=== PATIENT | male | born 1960 | race Caucasian/White ===

== ENCOUNTER 2023-10-31 09:41 | Emergency (ER) | payer BC, SELFPAY ==
[2023-10-31 09:43] VITALS: BP 141/92
[2023-10-31 09:55] VITALS: BMI 25.7
[2023-10-31 10:18] LABS: % Basophils 0.1 % (0-2); % Eosinophils 0.2 % (0-6); % Immature Granulocytes 0.3 % (0-0.5); % Lymphocytes 10.9 % (20.5-51.1); % Monocytes 7.8 % (1.7-9.3); % Neutrophils 80.7 % (42.2-75.2); Absolute Lymphocytes 1.1 10^3/uL (1.2-3.4); Absolute Monocytes 0.8 10^3/uL (0.1-0.6); Hematocrit 41.7 % (39.0-52.0); Hemoglobin 14.7 g/dL (13.0-18.0); Mean Corp Hgb Conc. 35.3 g/dL (33.0-37.0); Mean Corpuscular Hgb 29.5 pg (27.0-31.0); Mean Corpuscular Volume 83.6 fL (80.0-94.0); Mean Platelet Volume 9.3 fL (7.4-10.4); Nucleated Red Blood Cells % 0 % (-); Platelet Count 141 10^3/uL (130-400); Red Blood Cell Count 4.99 10^6/uL (4.70-6.10); Red Cell Dist. Width 13.1 % (11.5-14.5); White Blood Cell Count 9.9 10^3/uL (4.8-10.8)
[2023-10-31] MEDS: TORADOL 30 MG IV (10:26)
[2023-10-31] MEDS: ZOFRAN 4 MG IV (10:26)
[2023-10-31 10:27] LABS: ALT (SGPT) 16 U/L (0-50); AST (SGOT) 30 U/L (17-59); Albumin 4.4 g/dl (3.5-5.0); Alkaline Phosphatase 77 U/L (38-126); Blood Urea Nitrogen 25 mg/dl (9-20); Calcium 9.3 mg/dl (8.4-10.2); Carbon Dioxide 27 mmol/L (22-30); Chloride 101 mmol/L (98-107); Estimated Creatinine Clearance 41 ml/min; Glucose 109 mg/dl (70-99); Lipase 49 U/L (23-300); Potassium 3.9 mmol/L (3.5-5.1); Sodium 135 mmol/L (135-145); Total Bilirubin 1.1 mg/dl (0.2-1.3); eGFR 41.51
[2023-10-31] MEDS: NSS 1000 IV (10:27)
--- NOTE | 2023-10-31 10:36 | ED.GENMED ---
History of Present Illness
General
Chief Complaint: Abdominal Pain
Source: patient and spouse
Exam Limitations: none
Time Seen by Provider: 10/31/23 09:59
Nursing documentation reviewed up to this point in time: agreed with
History of Present Illness
History of Present Illness:
62-year-old male with past medical history of hypertension presenting to the emergency department today for concerns of left lower quadrant abdominal pain starting yesterday with associated nausea and vomiting yesterday as well. Denies any fevers
chest pain shortness of breath or changes in bowel movements.
Past History
Past History
ED Past Medical History: HTN
Social History
Tobacco: Non-smoker
Alcohol: None
Drug: None
Personal:
Living: with family
Employment: Employed
Review of Systems
Review of Systems
Allergies reviewed?: Yes
All Other Systems: ROS reviewed and negative except as documented in HPI and ROS
Phy Exam
Physical Exam
Physical Exam:
GENERAL: Alert , in no apparent distress
EYE: pupils equal and reactive
NECK: Supple, no significant adenopathy.
ENT: o/p clr, mmm.
CARDIAC: Regular rate and rhythm .
LUNGS: Clear breath sounds bilaterally, no acute respiratory distres
Abdomen, left lower quadrant abdominal pain to palpation otherwise soft benign abdomen.
NEUROLOGICAL: Alert and oriented, no focal neuro deficits
SKIN: Warm and dry, skin intact.
MUSCULOSKELETAL: No edema, well perfused.
PSYCH: Normal and appropriate interaction.
Course
Orders/Labs/Results
Orders:
Orders
10/31/23 09:46
IV Insert/Care/Rem.- Treatment PRN
10/31/23 10:01
Complete Blood Count/With Diff Urgent
Comprehensive Metabolic Panel Urgent
Lipase Urgent
10/31/23 10:18
CT Abd/Pel (IV only)-DH only Urgent
Comment:
Reason For Exam: llq pain
0.9% Sodium Chloride 1000 ml [Nss] 1,000 ml IV BOLUS
Ketorolac [Toradol] 30 mg IV NOW STA
Ondansetron Injectable [Zofran] 4 mg IV NOW STA
10/31/23 11:41
Urinalysis Reflex To Culture Urgent
Date Specimen was Collected: 10/31/23
Time Specimen was Collected: 11:36
Urine Microscopic Reflex Cult Urgent
10/31/23 14:27
BMP [Basic Metabolic Panel] Urgent
Abnormal Lab Results
10/31/23 10/31/23 10/31/23
10:01 11:41 14:27
Absolute Neuts (auto) 8.0 H 10^3/uL
(1.4-6.5)
Absolute Lymphs (auto) 1.1 L 10^3/uL
(1.2-3.4)
Absolute Monos (auto) 0.8 H 10^3/uL
(0.1-0.6)
Neutrophils % 80.7 H %
(42.2-75.2)
Lymphocytes % 10.9 L %
(20.5-51.1)
Sodium 133 L mmol/L
(135-145)
BUN 25 H mg/dl 25 H mg/dl
(9-20) (9-20)
Creatinine 1.8 H mg/dL 1.7 H mg/dL
(0.7-1.3) (0.7-1.3)
Glucose 109 H mg/dl
(70-99)
Calcium 8.3 L mg/dl
(8.4-10.2)
Ur Occult Blood Reflex Trace A
(Negative)
10/31/23 10:01
10/31/23 14:27
Vital Signs
Initial and Last Documented VS:
Initial Vital Signs
Temp Pulse Resp BP Pulse Ox
99.6 F 75 18 141/92 97
10/31/23 09:43 10/31/23 09:43 10/31/23 09:43 10/31/23 09:43 10/31/23 09:43
Last Documented Vital Signs
Temp Pulse Resp BP Pulse Ox
99.6 F 75 18 126/85 97
10/31/23 09:43 10/31/23 09:43 10/31/23 09:43 10/31/23 12:00 10/31/23 12:01
MDM/Problems Addressed
MDM/Problems Addressed:
63-year-old male presenting to the emergency department today with concerns of left lower quadrant pain starting yesterday with associated nausea and vomiting. Upon arrival here patient has a low-grade temp otherwise vital signs are normal.
Patient does have reproducible tenderness to the left lower quadrant. Plan for CT scan for further assessment. Additional labs were obtained showing elevated creatinine level 1.8. He denies any history of kidney disease was given a liter of
fluid. Patient's old labs were able to be seen via his patient portal on his phone his last creatinine was 1.08. Creatinine level was repeated after some fluids with creatinine 1.7. Patient has been vomiting potentially prerenal. CT scan did
show a distal stone on the left case was discussed with urology that recommend trial of passage and close outpatient follow-up. He was written for Flomax and advised for close outpatient follow-up. He was given strict return precautions.
Additionally patient's mass of the right kidney was explained to the patient and he will follow-up closely with urology for this as well.
*Critical Care Note
Total Time (30-74mins, 75-104mins- exclusive of procedures): Not Applicable
ED Attending Note
-
Portions of this chart may have been created with voice recognition software.� Occasional wrong word or��sound alike� substitutions may have occurred due to the inherent limitations of voice recognition software.
Discharge Plan
Departure
Patient Disposition: Home (Routine Discharge)
Date of Disposition: 10/31/23
Time of Disposition: 15:38
Patient with high blood pressure during this ER visit?: No
Condition: Good
Covid-19: Not Applicable
Discharge Problem:
Hydronephrosis with ureteral calculus, Kidney mass, Elevated serum creatinine
Instructions: Kidney Stones (DC)
Prescriptions:
New
ketorolac 10 mg tablet
10 mg PO Q8H PRN (Reason: Pain) 2 Days Qty: 7 0RF
ondansetron 4 mg tablet,disintegrating
4 mg PO Q8H PRN (Reason: nausea and vomiting) Qty: 7 0RF
tamsulosin [Flomax] 0.4 mg capsule
0.4 mg PO HS Qty: 10 0RF
No Action
valsartan-hydrochlorothiazide 1 EACH tablet
1 ea PO DAILY
Patient Comments:
80mg-12.5mg
diphenhydramine-acetaminophen 1 EACH tablet
1 ea PO PRN PRN (Reason: sleep)
Simvastatin
1 tab PO DAILY
Referrals:
Rafaela Cantu DO [Family Provider] -
Yobany Lawson MD [Active] - Follow up in 5-7 days
Activity Restrictions/Additional Instructions:
You came to the emergency department today with concerns of left-sided discomfort. You are found to have a distal kidney stone that is 5 x 3 mm in size. Please take the prescribed medications to help with passage and stay very hydrated.
Additionally you are found to have a 4 cm mass to the right kidney that will need close follow-up with urology. Return to the emergency department any worsening, new or concerning symptoms.
Interventions
Interventions:
*Risk Screen - Suicide Last Done: 10/31/23 09:43
*General Assessment Last Done: 10/31/23 09:43
*Neglect/Abuse Screening Last Done: 10/31/23 09:43
ED- Fall Risk Assessment Last Done: 10/31/23 12:18
*ED COVID-19 Vaccine History Last Done: 10/31/23 12:18
NE-Cjmidl-Zhgxxdxwkg Assessment Last Done: 10/31/23 10:03
Discharge Date and Time
Print Language: SETSWANA
[2023-10-31 11:41] VITALS: BP 124/80
[2023-10-31 12:00] VITALS: BP 126/85
[2023-10-31 12:10] LABS: Urine Albumin Trace (Neg - Trace); Urine Bilirubin Negative (Negative); Urine Character Clear (Clear); Urine Color Yellow; Urine Glucose Negative (Negative); Urine Ketone Negative (Negative); Urine Leukocyte Negative (Negative); Urine Nitrite Negative (Negative); Urine Occult Blood Trace (Negative); Urine Urobilinogen Negative (Neg - 1+)
[2023-10-31 13:21] LABS: Urine Red Blood Cell 0-2 /HPF (0-2); Urine White Cell 0-2 /HPF (0-5)
[2023-10-31 15:11] LABS: Blood Urea Nitrogen 25 mg/dl (9-20); Calcium 8.3 mg/dl (8.4-10.2); Carbon Dioxide 24 mmol/L (22-30); Chloride 103 mmol/L (98-107); Estimated Creatinine Clearance 44 ml/min; Glucose 98 mg/dl (70-99); Potassium 4.5 mmol/L (3.5-5.1); Sodium 133 mmol/L (135-145); eGFR 44.46
[2023-10-31 15:44] VITALS: BP 124/80
== END 2023-10-31 15:48 | disposition home or self-care (01) ==
LOC: EMR 09:41
PROVIDERS: Physician Assistant; EMERGENCY PHYSICIAN Emergency Medicine; FAMILY PHYSICIAN Family Medicine
DX: R10.32 Left lower quadrant pain (principal); R11.2 Nausea with vomiting, unspecified; N13.2 Hydronephrosis with renal and ureteral calculous obstruction; N28.89 Other specified disorders of kidney and ureter; R79.89 Other specified abnormal findings of blood chemistry; I10 Essential (primary) hypertension
CPT/HCPCS: 99285; 96375; 96361 ×2; 96374; 74177; 80048; 80053; 81003; 81015; 83690; 85025; Q9967

== ENCOUNTER → 2023-11-15 11:21 | Outpatient (REF) | payer BC, SELFPAY | LOC: RAD 11:21 | PROVIDERS: ATTENDING PHYSICIAN Specialist; FAMILY PHYSICIAN Family Medicine | DX: N28.89 Other specified disorders of kidney and ureter (principal) | CPT/HCPCS: 74170; Q9967 ==

== ENCOUNTER → 2024-02-08 10:12 | Outpatient (REF) | payer MEDICARE, SELFPAY ==
[2024-02-08 11:42] LABS: Hematocrit 39.2 % (39.0-52.0); Hemoglobin 13.1 g/dL (13.0-18.0); Mean Corp Hgb Conc. 33.4 g/dL (33.0-37.0); Mean Corpuscular Hgb 28.7 pg (27.0-31.0); Mean Platelet Volume 10.7 fL (7.4-10.4); Platelet Count 149 10^3/uL (130-400); Red Blood Cell Count 4.56 10^6/uL (4.70-6.10); Red Cell Dist. Width 13.4 % (11.5-14.5); White Blood Cell Count 4.6 10^3/uL (4.8-10.8)
[2024-02-08 12:53] LABS: Blood Urea Nitrogen 21 mg/dl (9-20); Calcium 9.1 mg/dl (8.4-10.2); Carbon Dioxide 27 mmol/L (22-30); Chloride 106 mmol/L (98-107); Glucose 84 mg/dl (70-99); Potassium 4.3 mmol/L (3.5-5.1); Sodium 143 mmol/L (135-145); eGFR > 60.00
== END ==
LOC: SDSPAT 10:12
PROVIDERS: ATTENDING PHYSICIAN Urology; FAMILY PHYSICIAN Family Medicine; OTHER PHYSICIAN Internal Medicine Cardiovascular Disease
DX: N28.89 Other specified disorders of kidney and ureter (principal); Z01.818 Encounter for other preprocedural examination
CPT/HCPCS: 36415; 80048; 85027; 86850; 86900; 86901; 93005

== ENCOUNTER 2024-02-14 05:56 | Inpatient (IN) | payer MEDICARE, BC, SELFPAY ==
[2024-02-08 10:57] VITALS: BMI 24.3
[2024-02-14] VITALS (22 sets, daily range): BP systolic 106–142; BP diastolic 64–81; BMI 24.3
--- NOTE | 2024-02-14 11:58 | W.IMMPOSTOP ---
Surgical Immed Post Op Note
-
Primary Surgeon: Dom
Assisting Surgeon: Renny
Pre-op Diagnosis: R renal mass
Post-op Diagnosis: same
Procedure Performed: robotic R radical nephrectomy
Anesthesia Type: gen
Specimen / Cultures: R kidney
Estimated Blood Loss: 30cc
Complications: none
Operative Findings: Unable to complete partial nephrectomy due to size and depth of large renal mass
Decision was made to complete total nephrectomy
[2024-02-14 12:43] LABS: Hematocrit 35.2 % (39.0-52.0); Hemoglobin 12.1 g/dL (13.0-18.0); Mean Corp Hgb Conc. 34.4 g/dL (33.0-37.0); Mean Corpuscular Hgb 28.9 pg (27.0-31.0); Platelet Count 135 10^3/uL (130-400); Red Blood Cell Count 4.19 10^6/uL (4.70-6.10); Red Cell Dist. Width 13.2 % (11.5-14.5); White Blood Cell Count 10.1 10^3/uL (4.8-10.8)
[2024-02-14 12:49] LABS: Blood Urea Nitrogen 23 mg/dl (9-20); Calcium 8.3 mg/dl (8.4-10.2); Carbon Dioxide 23 mmol/L (22-30); Chloride 106 mmol/L (98-107); Estimated Creatinine Clearance 61 ml/min; Glucose 165 mg/dl (70-99); Potassium 3.9 mmol/L (3.5-5.1); Sodium 138 mmol/L (135-145); eGFR > 60.00
[2024-02-14] MEDS: NSS 1000 IV (16:28)
--- NOTE | 2024-02-14 17:37 | PTCARENOTE ---
Received patient from PACU via bed around 1625 in stable condition. Patient oriented to room. Pain controlled. 5 laps site to right abdomen as well as right lateral transverse pelvic incision PAPER HANGER closed with surgical glue. Urinary catheter draining
clear yellow urine. Call mena in reach.
[2024-02-14] MEDS: SENOKOT PO (20:43)
[2024-02-14] MEDS: TYLENOL 650 MG PO (22:20)
[2024-02-14] MEDS: REMERON 7.5 MG PO (22:20)
[2024-02-15 03:08] VITALS: BP 112/64
[2024-02-15] MEDS: PERCOCET 5/325 1 TABLET PO (03:09)
[2024-02-15] MEDS: NSS 1000 IV (03:10)
--- NOTE | 2024-02-15 06:23 | PTCARENOTE ---
Indwelling catheter removed per order @0605 without incident. Pt given time and amount.
[2024-02-15 06:34] LABS: Hematocrit 33.5 % (39.0-52.0); Hemoglobin 11.8 g/dL (13.0-18.0); Mean Corp Hgb Conc. 35.2 g/dL (33.0-37.0); Mean Corpuscular Hgb 30.3 pg (27.0-31.0); Mean Corpuscular Volume 86.1 fL (80.0-94.0); Mean Platelet Volume 10.9 fL (7.4-10.4); Platelet Count 141 10^3/uL (130-400); Red Blood Cell Count 3.89 10^6/uL (4.70-6.10); Red Cell Dist. Width 13.3 % (11.5-14.5); White Blood Cell Count 12.1 10^3/uL (4.8-10.8)
[2024-02-15 06:57] LABS: Blood Urea Nitrogen 25 mg/dl (9-20); Calcium 8.6 mg/dl (8.4-10.2); Carbon Dioxide 21 mmol/L (22-30); Chloride 107 mmol/L (98-107); Estimated Creatinine Clearance 46 ml/min; Glucose 116 mg/dl (70-99); Potassium 4.9 mmol/L (3.5-5.1); Sodium 140 mmol/L (135-145); eGFR 47.52
[2024-02-15 07:31] VITALS: BP 122/63
[2024-02-15] MEDS: SENOKOT 17.2 MG PO (08:13)
[2024-02-15] MEDS: DIOVAN 80 MG PO (08:13)
[2024-02-15] MEDS: ALDACTONE 12.5 MG PO (08:14)
[2024-02-15] MEDS: CRESTOR 5 MG PO (08:14)
--- NOTE | 2024-02-15 08:56 | W.DS.TRANS ---
DC Summary - Events Assistant
-
Discharge Instructions:
Sleep Apnea Risk Intermediate
Discharge Diagnosis/Procedures Right kidney mass
Robotic right nephrectomy
Diet No restrictions
Activity No strenuous activity
Additional Activity Avoid lifting, straining, and strenuous exercise
for 4 weeks. Sorry, no pickleball during this
time
Driving Restrictions As prior to admission
Bathing Restrictions OK to Shower
Wound Care gently rinse incisions in the shower, don't
scrub or pick off glue
Instructions:
Stand-Alone Forms:
Changes to Home Medications: No
Discharge Medications:
DC Medications w/original date entered in [employer]
mirtazapine 15 mg tablet 7.5 mg PO HS PRN SLEEP 02/11/24
rosuvastatin 5 mg tablet 5 mg PO DAILY 02/11/24
spironolactone 25 mg tablet 12.5 mg PO DAILY 02/11/24
valsartan 80 mg tablet 80 mg PO DAILY 02/11/24
oxycodone-acetaminophen 5 mg-325 mg tablet 1 tab PO Q4HPRN PRN moderate pain #10 tabs 02/14/24
Home Medication Changes
Pending Results: No
[2024-02-15 11:27] VITALS: BP 112/70
--- NOTE | 2024-02-15 11:39 | CM ---
Met with pt at bedside
Pt lives with his in a 2 story home; 3 steps to enter, 12 steps to 2nd fl
Retired, independent , driving
DME - none
SNF/HH - no hx
Has ride at discharge
PCP - Rafaela Cantu
Pharm - [facility]
Plan - anticipate home no needs when medically ready
--- NOTE | 2024-02-26 13:37 | W.PN.UPDATE ---
Update Note
Progress Note Update
This patient was intended to be admitted as inpatient due to radical nephrectomy procedure performed
--- NOTE | 2024-02-26 13:37 | W.DS.TRANS ---
Addendum entered and electronically signed by Ananda Fernandes MD 02/26/24 13:40:
Ignore this summary - please refer to the note from Dr. Lawson
Original Note:
DC Summary - Food Safety Director
-
Discharge Instructions:
Sleep Apnea Risk Intermediate
Discharge Diagnosis/Procedures Right kidney mass
Robotic right nephrectomy
Diet No restrictions
Activity No strenuous activity
Additional Activity Avoid lifting, straining, and strenuous exercise
for 4 weeks. Sorry, no pickleball during this
time
Driving Restrictions As prior to admission
Bathing Restrictions OK to Shower
Wound Care gently rinse incisions in the shower, don't
scrub or pick off glue
Instructions:
Stand-Alone Forms:
Changes to Home Medications: No
Discharge Medications:
DC Medications w/original date entered in [employer]
mirtazapine 15 mg tablet 7.5 mg PO HS PRN SLEEP 02/11/24
rosuvastatin 5 mg tablet 5 mg PO DAILY 02/11/24
spironolactone 25 mg tablet 12.5 mg PO DAILY 02/11/24
valsartan 80 mg tablet 80 mg PO DAILY 02/11/24
oxycodone-acetaminophen 5 mg-325 mg tablet 1 tab PO Q4HPRN PRN moderate pain #10 tabs 02/14/24
Home Medication Changes
Pending Results: Yes (pathology)
== END 2024-02-15 15:00 | disposition home or self-care (01) | DRG 658 ==
LOC: PACUI 05:56
PROVIDERS: ADMITTING PHYSICIAN Urology
PROC: 0TT04ZZ Resection of Right Kidney, Percutaneous Endoscopic Approach (ICD-10-PCS; 2024-02-14)
PROC: 8E0W4CZ Robotic Assisted Procedure of Trunk Region, Percutaneous Endoscopic Approach (ICD-10-PCS; 2024-02-14)
DX: D30.01 Benign neoplasm of right kidney (principal)
CPT/HCPCS: 50545; S2900; 88304; 88307; 80048; 85027; 86900; 86901; 88341; 88342

== ENCOUNTER → 2024-03-01 12:05 | Day surgery (SDC) | payer MEDICARE, SELFPAY ==
[2024-03-01] VITALS (15 sets, daily range): BP systolic 130–150; BP diastolic 70–89; BMI 25.1
--- NOTE | 2024-03-01 06:17 | ED.GENMED ---
History of Present Illness
General
Chief Complaint: Abdominal Pain
Source: patient
Exam Limitations: none
Time Seen by Provider: 03/01/24 06:10
History of Present Illness
History of Present Illness:
See MDM
Past History
Past History
ED Past Medical History: HTN
ED Past Surgical History: Urological (R nephrectomy)
Social History
Tobacco: Non-smoker
Alcohol: None
Drug: None
Personal:
Living: with family
Employment: Employed
Phy Exam
Physical Exam
Physical Exam:
See MDM
Course
Orders/Labs/Results
Orders:
Orders
03/01/24 06:15
0.9% Sodium Chloride 1000 ml [Nss] 1,000 ml IV BOLUS
Iohexol [Omnipaque] See Protocol PO NOW STA
Morphine Sulfate 4 mg IV NOW STA
Ondansetron Injectable [Zofran] 4 mg IV NOW STA
03/01/24 06:16
CT Abd/pel (oral only)-DH Only Urgent
Comment: R nephrectomy 2 wks ago
Reason For Exam: general abd pain
03/01/24 06:19
Complete Blood Count/With Diff Urgent
Comprehensive Metabolic Panel Urgent
Lipase Urgent
03/01/24 06:47
Urinalysis Reflex To Culture Urgent
Date Specimen was Collected: 03/01/24
Time Specimen was Collected: 06:46
Urine Microscopic Reflex Cult Urgent
03/01/24 08:00
HYDROmorphone [Dilaudid] 0.5 mg IV NOW STA
Ondansetron Injectable [Zofran] 4 mg IV NOW STA
Abnormal Lab Results
03/01/24 03/01/24
06:19 06:47
RBC 4.33 L 10^6/uL
(4.70-6.10)
Hgb 12.6 L g/dL
(13.0-18.0)
Hct 35.8 L %
(39.0-52.0)
Absolute Neuts (auto) 6.7 H 10^3/uL
(1.4-6.5)
Neutrophils % 77.6 H %
(42.2-75.2)
Lymphocytes % 16.1 L %
(20.5-51.1)
Carbon Dioxide 19 L mmol/L
(22-30)
BUN 45 H mg/dl
(9-20)
Creatinine 2.2 H mg/dL
(0.7-1.3)
Glucose 126 H mg/dl
(70-99)
Ur Occult Blood Reflex 4+ A
(Negative)
Leukocyte Esterase Rfl Trace A
(Negative)
Urine RBC 7-10 A /HPF
(0-2)
Urine Albumin (Reflex) 1+ A
(Neg - Trace)
03/01/24 06:19
03/01/24 06:19
Vital Signs
Initial and Last Documented VS:
Initial Vital Signs
Temp Pulse Resp BP Pulse Ox
98.0 F 68 20 150/86 99
03/01/24 05:50 03/01/24 05:50 03/01/24 05:50 03/01/24 05:50 03/01/24 05:50
Last Documented Vital Signs
Temp Pulse Resp BP Pulse Ox
98.0 F 71 20 142/89 97
03/01/24 05:50 03/01/24 08:00 03/01/24 05:50 03/01/24 07:00 03/01/24 08:00
MDM/Problems Addressed
Differential Diagnosis Includes:
HPI and MDM Narrative:
64-year-old male presenting with generalized abdominal pain. This has been going on since this morning. He complains of dry heaves. He did have a normal bowel movement recently. Patient recently had right nephrectomy 2 weeks ago. Patient had
large kidney mass that required complete removal of the kidney. Patient states he has been feeling fine up until this morning.
Given his abdominal discomfort and his recent surgery, will obtain CT
Physical exam
General: Well appearing and non-toxic
HEENT: protecting airway. Mildly dry mucous member
Neck: appears supple
CV: No evidence of cyanosis
Resp: No accessory muscle use
Abd: Non-distended. Mild general tenderness throughout. No rebound
Extremities: No deformities. No edema
Neuro: alert
Psych: Normal affect
Skin: Intact
Problems Addressed including Acute and Chronic Conditions affecting care:
1. Abdominal pain
Acuity: acute
Prognosis: stable
Details: Given the recent nephrectomy, will obtain CT looking for any evidence of postsurgical complication.
Updates
8:50 AM radiology called indicating obstructive kidney stone with hydronephrosis. Given that he only has 1 kidney with a rising creatinine, urology made aware who will bring to the OR today.
Differential Diagnosis (but not limited to): Gastroenteritis, colitis, pancreatitis, diverticulitis
Testing considered: CT with IV contrast but will avoid given recent nephrectomy
Drug therapy (if applicable): OTC meds, please see d/c instruction regarding Rx drugs
Amount and/or Complexity of Data Reviewed
Clinical info obtained from: Patient
External data reviewed: Recent nephrectomy 2 weeks ago
Labs I independently reviewed (but not limited to): Mild Cr elevation
Radiology: The CT scan was personally and independently reviewed. In addition, official CT report reviewed.
Pulse Ox: not hypoxic
EKG independently reviewed: N/A
Senior Environmental Scientist: Sinus rhythm
Critical Care: N/A
Risk of Complication:
Social Determinants of health: Good social support
Discussed with other providers: Radiology, urology
Escalation of Care includes Admit/Obs: Given the obstructing stone with only 1 kidney, urology will bring to the OR
Occasional wrong word or 'sound a like' substitutions may have occurred due to the inherent limitations of voice recognition software. Read the chart carefully and recognize, using context, where substitutions have occurred.
*Critical Care Note
Total Time (30-74mins, 75-104mins- exclusive of procedures): Not Applicable
ED Attending Note
-
Portions of this chart may have been created with voice recognition software.� Occasional wrong word or��sound alike� substitutions may have occurred due to the inherent limitations of voice recognition software.
Discharge Plan
Departure
Patient Disposition: OR
Date of Disposition: 03/01/24
Time of Disposition: 08:54
Admit to: OR
Presentation/result/management discussed w/ accepting MD/DO: Urology
Discharge Problem:
Kidney stone on left side
Prescriptions:
No Action
valsartan 80 mg Tablet
80 mg PO DAILY
spironolactone 25 mg Tablet
12.5 mg PO DAILY
mirtazapine 15 mg Tablet
7.5 mg PO HS PRN (Reason: SLEEP)
rosuvastatin 5 mg Tablet
5 mg PO DAILY
oxycodone-acetaminophen 5-325 mg Tablet
1 tab PO Q4HPRN PRN (Reason: moderate pain) Qty: 10 0RF
Referrals:
Rafaela Cantu DO [Family Provider] -
Interventions
Interventions:
*Risk Screen - Suicide Last Done: 03/01/24 05:50
*General Assessment Last Done: 03/01/24 05:50
*Neglect/Abuse Screening Last Done: 03/01/24 05:50
ED- Fall Risk Assessment Last Done: 03/01/24 05:50
*ED COVID-19 Vaccine History Last Done: 03/01/24 05:50
TJ-Fcygyf-Ztvraqtupw Assessment Last Done: 03/01/24 07:15
Discharge Date and Time
Print Language: AMHARIC
[2024-03-01] MEDS: MORPHINE SULFATE 4 MG IV (06:44)
[2024-03-01] MEDS: NSS 1000 IV ×2 (06:44→09:48)
[2024-03-01] MEDS: ZOFRAN 4 MG IV ×2 (06:45→08:05)
[2024-03-01] MEDS: OMNIPAQUE 50 ML PO (06:45)
[2024-03-01 06:51] LABS: % Basophils 0.5 % (0-2); % Eosinophils 0.6 % (0-6); % Immature Granulocytes 0.3 % (0-0.5); % Lymphocytes 16.1 % (20.5-51.1); % Monocytes 4.9 % (1.7-9.3); % Neutrophils 77.6 % (42.2-75.2); Absolute Eosinophils 0.1 10^3/uL (0-0.7); Absolute Lymphocytes 1.4 10^3/uL (1.2-3.4); Absolute Monocytes 0.4 10^3/uL (0.1-0.6); Absolute Neutrophils 6.7 10^3/uL (1.4-6.5); Hematocrit 35.8 % (39.0-52.0); Hemoglobin 12.6 g/dL (13.0-18.0); Mean Corp Hgb Conc. 35.2 g/dL (33.0-37.0); Mean Corpuscular Hgb 29.1 pg (27.0-31.0); Mean Corpuscular Volume 82.7 fL (80.0-94.0); Mean Platelet Volume 10.3 fL (7.4-10.4); Nucleated Red Blood Cells % 0 % (-); Platelet Count 148 10^3/uL (130-400); Red Blood Cell Count 4.33 10^6/uL (4.70-6.10); Red Cell Dist. Width 12.3 % (11.5-14.5); White Blood Cell Count 8.6 10^3/uL (4.8-10.8)
[2024-03-01 06:52] LABS: ALT (SGPT) 26 U/L (0-50); AST (SGOT) 27 U/L (17-59); Albumin 4.1 g/dl (3.5-5.0); Alkaline Phosphatase 76 U/L (38-126); Blood Urea Nitrogen 45 mg/dl (9-20); Calcium 9.2 mg/dl (8.4-10.2); Carbon Dioxide 19 mmol/L (22-30); Chloride 107 mmol/L (98-107); Glucose 126 mg/dl (70-99); Lipase 291 U/L (23-300); Potassium 4.6 mmol/L (3.5-5.1); Sodium 139 mmol/L (135-145); Total Bilirubin 0.6 mg/dl (0.2-1.3); Total Protein 6.9 g/dl (6.3-8.2); eGFR 32.43
[2024-03-01 07:09] LABS: Urine Albumin 1+ (Neg - Trace); Urine Bilirubin Negative (Negative); Urine Character Clear (Clear); Urine Color Straw; Urine Glucose Negative (Negative); Urine Ketone Negative (Negative); Urine Leukocyte Trace (Negative); Urine Nitrite Negative (Negative); Urine Occult Blood 4+ (Negative); Urine Urobilinogen Negative (Neg - 1+)
[2024-03-01 07:21] LABS: Urine White Cell 0-2 /HPF (0-5)
[2024-03-01] MEDS: DILAUDID 0.5 MG IV ×2 (08:07→10:41)
--- NOTE | 2024-03-01 10:25 | HP.FOC2 ---
Focused History & Physical
Chief Complaint
HPI:
Chief Complaint: R flank pain
HPI / Indication for Planned Procedure:
64M with recent L nephrectomy for large renal mass (oncocytoma)
Prior small distal ureteral stone which was passed preoperatively
Presenting with R flank pain and found to have 6mm R distal ureteral stone
Creatinine slightly elevated above baseline
Relevant Past Medical History: Hypertension and Other (kidney stone)
Relevant Social History: Negative
Relevant Family History: Negative
Relevant Past Surgical History: Negative
Review of Systems
Review of Pertinent Systems: All Systems Negative
Medication
See Medication form for detailed medications: No
Medication List (including Herbals & OTC):
mirtazapine 15 mg tablet 7.5 mg PO HS PRN SLEEP 02/11/24
rosuvastatin 5 mg tablet 5 mg PO DAILY 02/11/24
spironolactone 25 mg tablet 12.5 mg PO DAILY 02/11/24
valsartan 80 mg tablet 80 mg PO DAILY 02/11/24
oxycodone-acetaminophen 5 mg-325 mg tablet 1 tab PO Q4HPRN PRN moderate pain #10 tabs 02/14/24
Medications Reviewed: Yes
Allergies and Reactions
Patient has Allergies: No
Noted Allergies and Reactions:
Allergy/AdvReac Type Severity Reaction Status Date / Time
No Known Allergies Allergy Verified 03/01/24 05:49
Pertinent Physical Exam
All Other Systems: Negative
Head/Neck: Normal
Lungs: Normal
Heart: Normal
Extremities: Normal
Diagnosis / Assessment
64M with 6mm obstructing L distal ureteral stone with solitary kidney
- No evidence of sepsis or infected urine
- OR for left ureteroscopy, laser lithotripsy, ureteral stent placement
- Likely discharge post op, routine follow up
Plan / Procedure
- OR for left ureteroscopy, laser lithotripsy, ureteral stent placement
- Likely discharge post op, routine follow up
Anesthesia/Sedation to be done by Anesthesia Provider: Yes
[2024-03-01] MEDS: ROCEPHIN 1000 MG IV (10:40)
[2024-03-01] MEDS: STERILE WATER FOR INJECTION 10 ML IV (10:40)
[2024-03-01] MEDS: Pyridium 200 MG PO (14:20)
[2024-03-01] MEDS: TYLENOL 650 MG PO (14:21)
[2024-03-06 17:28] LABS: Stone Analysis Mass 17 mg
== END | disposition home or self-care (01) ==
LOC: EMR 05:47 → PACU 12:05
PROVIDERS: ATTENDING PHYSICIAN Urology; EMERGENCY PHYSICIAN Student in an Organized Health Care Education/Training Program; FAMILY PHYSICIAN Family Medicine
DX: N20.1 Calculus of ureter (principal); Z90.5 Acquired absence of kidney; Z87.442 Personal history of urinary calculi
CPT/HCPCS: 52352; 74176; 80053; 81003; 81015; 82365; 83690; 85025; 96361; 96374; 96375; 96376; 99284; A4300; C1758; C1769

== ENCOUNTER 2024-03-07 11:05 | Emergency (ER) | payer MEDICARE, SELFPAY ==
[2024-03-07] VITALS (11 sets, daily range): BP systolic 106–137; BP diastolic 75–89; PULSE 60–80; BMI 24.1
--- NOTE | 2024-03-07 12:09 | ED.GENMED ---
History of Present Illness
General
Chief Complaint: Fatigue
Source: patient
Time Seen by Provider: 03/07/24 11:47
History of Present Illness
History of Present Illness:
64yoM with a history of hypertension, hyperlipidemia, kidney stone, and recent right nephrectomy on 02/14/2024 presenting for evaluation of fatigue. Patient underwent a lithotripsy procedure on 03/01/2024 for a ureteral stone. He was having
hematuria and pain after the procedure. He was started on Flomax 4 days ago. He also had a leftover cephalosporin prescription at home and took antibiotics for 4 days at the instruction of his urologist. Last dose of antibiotics was yesterday.
His urinary symptoms have mostly resolved. He currently feels very fatigued. He walked up the steps earlier today and his heart rate increased to 135. This is very unusual for him. He does endorse lightheadedness with position changes. He
denies any chest pain or shortness of breath. Patient called his farm owner operator who advised him to go to the ED for concern for a possible PE.
Past History
Past History
ED Past Medical History: HTN
ED Past Surgical History: Urological (R nephrectomy)
Social History
Tobacco: Non-smoker
Alcohol: None
Drug: None
Personal:
Living: with family
Employment: Employed
Phy Exam
General Physical Exam
General Presentation: well appearing and no apparent distress
General age: appears stated age
General Skin: warm and dry
General Habitus: normal
General Mental: alert
ENT Exam
ENT Exam: normocephalic
Cardiovascular Exam
Cardiovascular Exam: regular rate/rhythm and no murmur
Pulmonary Exam
Pulmonary Exam: lungs clear, no respiratory distress, no rales, no crackles, no rhonchi and no wheezing
Neurological Exam
Neurological Exam: alert
[place] Coma Scale
Eye Opening: Spontaneous
Verbal Response: Oriented
Motor Response: Obeys Commands
GCS Total Score: 15
Skin Exam
Skin Exam: normal color and warm/dry
Psychiatric Exam
Psychiatric Exam: normal mood/affect
Course
Orders/Labs/Results
Orders:
Orders
03/07/24 11:11
Electrocardiogram (*1) Urgent
Reason for Study: Bradycardia / Tachycardia
EKG- Treatment ONCE
03/07/24 12:09
Orthostatic VS- Treatment ONCE
03/07/24 12:29
Complete Blood Count/With Diff Urgent
Comprehensive Metabolic Panel Urgent
D-Dimer Urgent
TSH Reflex To Free T4 Urgent
Troponin I Urgent
03/07/24 12:38
Urinalysis Reflex To Culture Urgent
Date Specimen was Collected: 03/07/24
Time Specimen was Collected: 12:23
03/07/24 14:28
CT Chest Pe Study Urgent
Comment:
Reason For Exam: Tachycardia, elevated D-dimer
0.9% Sodium Chloride 1000 ml [Nss] 1,000 ml IV BOLUS
Abnormal Lab Results
03/07/24
12:29
RBC 4.44 L 10^6/uL
(4.70-6.10)
Hct 37.7 L %
(39.0-52.0)
D-Dimer 1.90 H ug/mlFEU
(0.00-0.50)
BUN 30 H mg/dl
(9-20)
Creatinine 1.7 H mg/dL
(0.7-1.3)
03/07/24 12:29
03/07/24 12:29
Vital Signs
Initial and Last Documented VS:
Initial Vital Signs
Temp Pulse Resp BP Pulse Ox
97.6 F 97 16 117/81 98
03/07/24 11:09 03/07/24 11:09 03/07/24 11:09 03/07/24 11:09 03/07/24 11:09
Last Documented Vital Signs
Temp Pulse Resp BP Pulse Ox
97.0 F 70 18 120/81 98
03/07/24 15:42 03/07/24 16:30 03/07/24 16:30 03/07/24 16:30 03/07/24 16:30
MDM/Problems Addressed
Differential Diagnosis Includes:
64yoM here with fatigue. Also c/o lightheadedness with position changes. HR 130s with walking earlier today. No CP/SOB. Sent to ED for concern for PE. Hx of R nephrectomy last month and lithotripsy last week. VSS. He is well appearing in no
distress. Exam is reassuring. Differential diagnosis includes but is not limited to: medication side effect, dehydration, anemia, less likely PE
Initial ED plan: Check cardiac labs, TSH, D-dimer, UA, and EKG.
*EKG
Interpreted by ED Provider?: Yes
EKG Intrepretation Date: 03/07/24
Heart Rate: 56
Rate: bradycardiac
Rhythm: sinus
[place]: normal axis
Interval: normal interval
QRS Pattern: normal QRS
Ischemia: no ischemia
*Critical Care Note
Total Time (30-74mins, 75-104mins- exclusive of procedures): Not Applicable
Update Note
Update Note:
EKG shows sinus bradycardia without ischemic changes. Creatinine 1.7 which has improved from 2.2 last week. UA bland without signs of infection. D-dimer elevated. Extensive conversion held with patient and regarding CT scan including risk of
contrast induced nephropathy. Patient would like to proceed with CT scan which was ordered. CT fortunately negative for pulmonary embolism. Thoracic aortic aneurysm seen incidentally which he was notified of and he was given a copy of his CT scan
report. Patient given IV fluid bolus after CT and was advised to increase fluid intake over the next several days. No indication for hospitalization. Advised f/u with PCP and ED return precautions discussed. He was discharged in stable condition.
ED Attending Note
-
Portions of this chart may have been created with voice recognition software.� Occasional wrong word or��sound alike� substitutions may have occurred due to the inherent limitations of voice recognition software.
Discharge Plan
Departure
Patient Disposition: Home (Routine Discharge)
Date of Disposition: 03/07/24
Time of Disposition: 15:50
Patient with high blood pressure during this ER visit?: No
Discharge Problem:
Fatigue
Instructions: Fatigue (DC)
Prescriptions:
No Action
valsartan 80 mg Tablet
80 mg PO DAILY
spironolactone 25 mg Tablet
12.5 mg PO DAILY
mirtazapine 15 mg Tablet
7.5 mg PO HS PRN (Reason: SLEEP)
rosuvastatin 5 mg Tablet
5 mg PO DAILY
Referrals:
Rafaela Cantu DO [Family Provider] -
Activity Restrictions/Additional Instructions:
Hold your Flomax. Increase your fluid intake over the next several days.
Please follow-up with your family doctor on Sunday. Return to the ER with any new or worsening symptoms.
Interventions
Interventions:
*Risk Screen - Suicide Last Done: 03/07/24 11:09
*General Assessment Last Done: 03/07/24 12:44
*Neglect/Abuse Screening Last Done: 03/07/24 11:09
*ED COVID-19 Vaccine History Last Done: 03/07/24 12:44
*Nursing Disposition Last Done: 03/07/24 16:30
Discharge Date and Time
Discharge Date/Time: 03/07/24 16:56
Print Language: MACEDONIAN
[2024-03-07 12:46] LABS: % Basophils 0.4 % (0-2); % Eosinophils 1.9 % (0-6); % Immature Granulocytes 0.4 % (0-0.5); % Lymphocytes 31.7 % (20.5-51.1); % Monocytes 8.4 % (1.7-9.3); % Neutrophils 57.2 % (42.2-75.2); Absolute Eosinophils 0.1 10^3/uL (0-0.7); Absolute Lymphocytes 1.7 10^3/uL (1.2-3.4); Absolute Monocytes 0.4 10^3/uL (0.1-0.6); Hematocrit 37.7 % (39.0-52.0); Hemoglobin 13.3 g/dL (13.0-18.0); Mean Corp Hgb Conc. 35.3 g/dL (33.0-37.0); Mean Corpuscular Volume 84.9 fL (80.0-94.0); Mean Platelet Volume 9.7 fL (7.4-10.4); Nucleated Red Blood Cells % 0 % (-); Platelet Count 159 10^3/uL (130-400); Red Blood Cell Count 4.44 10^6/uL (4.70-6.10); Red Cell Dist. Width 12.5 % (11.5-14.5); White Blood Cell Count 5.3 10^3/uL (4.8-10.8)
[2024-03-07 12:58] LABS: AST (SGOT) 21 U/L (17-59); Albumin 4.2 g/dl (3.5-5.0); Alkaline Phosphatase 61 U/L (38-126); Blood Urea Nitrogen 30 mg/dl (9-20); Calcium 9.6 mg/dl (8.4-10.2); Carbon Dioxide 23 mmol/L (22-30); Chloride 106 mmol/L (98-107); Estimated Creatinine Clearance 43 ml/min; Glucose 83 mg/dl (70-99); Potassium 4.7 mmol/L (3.5-5.1); Sodium 141 mmol/L (135-145); Total Protein 7.1 g/dl (6.3-8.2); eGFR 44.18
[2024-03-07 12:59] LABS: ALT (SGPT) 22 U/L (0-50); Total Bilirubin 0.7 mg/dl (0.2-1.3)
[2024-03-07 13:03] LABS: Urine Albumin Negative (Neg - Trace); Urine Bilirubin Negative (Negative); Urine Character Clear (Clear); Urine Color Yellow; Urine Glucose Negative (Negative); Urine Ketone Negative (Negative); Urine Leukocyte Negative (Negative); Urine Nitrite Negative (Negative); Urine Occult Blood Negative (Negative); Urine Urobilinogen Negative (Neg - 1+)
[2024-03-07 13:04] LABS: Troponin I < 0.012 ng/ml
[2024-03-07] MEDS: NSS 1000 IV (15:45)
[2024-03-07 16:49] LABS: TSH Reflex To Free T4 3.97 uIU/ml (0.47-4.68)
== END 2024-03-07 16:56 | disposition home or self-care (01) ==
LOC: EMR 11:05
PROVIDERS: Physician Assistant; EMERGENCY PHYSICIAN Emergency Medicine; FAMILY PHYSICIAN Family Medicine
DX: R53.83 Other fatigue (principal)
CPT/HCPCS: 99285; 96360; 71275; 80053; 81003; 84443; 84484; 85025; 85379; 93005; Q9967

== ENCOUNTER → 2025-04-01 09:47 | Outpatient (REF) | payer MEDICARE, SELFPAY | LOC: RAD 09:47 | PROVIDERS: ATTENDING PHYSICIAN Urology; FAMILY PHYSICIAN Family Medicine | DX: N28.89 Other specified disorders of kidney and ureter (principal); N20.1 Calculus of ureter; N20.0 Calculus of kidney | CPT/HCPCS: 74178; Q9967 ==